=== PATIENT | female | born 1980 | race Caucasian/White ===

== ENCOUNTER 2017-03-07 16:15 | Emergency (ER) | payer OTHER ==
[2017-03-07 16:40] VITALS: BMI 21.3
[2017-03-07] MEDS ORDERED: Albuterol 0.083% Inhal Sol (2.5 mg/3 mL) UD IH STA (17:03)
--- NOTE | 2017-03-07 17:17 | ED PDOC ---
Arrival/HPI - General Chief Complaint: Cough, Cold, Congestion Time Seen by Provider: 03/07/17 16:52 Historian: Patient - History of Present Illness Narrative History of Present Illness (Text): 03/07/17 17:15 36-year-old female presents today with a cough 1 month. Patient states it started out as a dry cough And then the past week has become productive with greenish yellow sputum. Patient complaining of subjective fevers at home. Patient states at times she feels that she is having some difficulty with deep inspiration. Patient complaining of joint aches. Patient states for "a while now " she has had back pain and now has been experiencing pain in the ankles and knees elbows and wrists. Patient states recently she developed pain in the shoulders bilaterally. She denies any recent travel. States she was born in the [place]. Denies camping. Denies exposure to wooded areas. Denies abdominal pain. No nausea or vomiting. No dizziness or weakness. Patient states she is a smoker. No other complaints. Time/Duration: > month Symptom Onset: Gradual Symptom Course: Worsening Quality: Aching Severity Level: 5 Past Medical History - Provider Review Nursing Documentation Reviewed: Yes - Travel History Have you recently traveled outside [place] w/in the past 3 mons?: No - Infectious Disease Hx of Infectious Diseases: None - Tetanus Immunization Tetanus Immunization: Unknown - Cardiac Hx Cardiac Disorders: No - Pulmonary Hx Respiratory Disorders: No - Neurological Hx Neurological Disorder: No - HEENT Hx HEENT Disorder: No - Renal Hx Renal Disorder: No - Endocrine/Metabolic Hx Endocrine Disorders: No - Hematological/Oncological Hx Blood Disorders: No - Integumentary Hx Dermatological Disorder: No - Musculoskeletal/Rheumatological Hx Musculoskeletal Disorders: No - Gastrointestinal Hx Gastrointestinal Disorders: No - Genitourinary/Gynecological Hx Genitourinary Disorders: No - Psychiatric Hx Psychophysiologic Disorder: No Hx Substance Use: No - Surgical History Other/Comment: Myonectomy fibroids. - Anesthesia Hx Anesthesia: No Hx Anesthesia Reactions: No Hx Malignant Hyperthermia: No - Suicidal Assessment Feels Threatened In Home Enviroment: No Family/Social History - Physician Review Nursing Documentation Reviewed: Yes Family/Social History: Unknown Family HX Smoking Status: Current Some Days Smoker Hx Alcohol Use: Yes Hx Substance Use: No Hx Substance Use Treatment: No Allergies/Home Meds Allergies/Adverse Reactions: Allergies No Known Allergies Allergy (Verified 08/24/16 22:45) Review of Systems - Review of Systems Constitutional: Fevers. absent: Fatigue ENT: Sinus Congestion. absent: Sore Throat Respiratory: SOB, Cough, Wheezing Cardiovascular: absent: Chest Pain, Palpitations Gastrointestinal: absent: Abdominal Pain, Nausea, Vomiting Genitourinary Female: absent: Dysuria, Frequency, Hematuria Musculoskeletal: Arthralgias, Back Pain. absent: Neck Pain Skin: absent: Rash, Pruritis Neurological: absent: Headache, Dizziness Psychiatric: absent: Anxiety, Depression Physical Exam Vital Signs Reviewed: Yes Vital Signs Temp Pulse Resp BP Pulse Ox 03/07/17 16:34 98.6 F 73 16 100/62 100 Temperature: Afebrile Blood Pressure: Normal Pulse: Regular Respiratory Rate: Normal Appearance: Positive for: Well-Appearing, Non-Toxic, Comfortable Pain Distress: None Mental Status: Positive for: Alert and Oriented X 3 - Systems Exam Head: Present: Atraumatic Conjunctiva: Present: Normal Mouth: Present: Moist Mucous Membranes Pharnyx: Present: Normal. No: ERYTHEMA, EXUDATE, TONSILS ENLARGED, Peritonsilar Swelling, Uvular Deviation, Muffled/Hoarse Voice Nose (External): Present: Atraumatic Nose (Internal): Present: Normal Inspection. No: Septal Hematoma Neck: Present: Normal Range of Motion, Trachea Midline. No: Meningeal Signs, Lymphadenopathy Respiratory/Chest: Present: Good Air Exchange, Wheezes, Rhonchi. No: Clear to Auscultation, Respiratory Distress, Accessory Muscle Use, Retracting, Tachypneic Cardiovascular: Present: Regular Rate and Rhythm. No: Tachycardic Abdomen: No: Tenderness Back: Present: Normal Inspection. No: Midline Tenderness, Paraspinal Tenderness Upper Extremity: Present: Normal ROM. No: Swelling Lower Extremity: Present: Normal ROM Neurological: Present: GCS=15, Speech Normal, Gait Normal Skin: Present: Warm, Dry, Normal Color. No: Rashes Psychiatric: Present: Alert, Oriented x 3 Medical Decision Making ED Course and Treatment: 03/07/17 17:19 36yr old smoker with 2 month history of cough. now productive. secondary complaint of joint aches. pt with expiratory wheezing noted bilaterally with rhonchi. will given albuterol nebulizer. cxr; no infiltrate will send lyme disease test for arthralgias; pt reassessment; pt non toxic well appearing. no distress. stable vitals. lungs cta bilaterally; pt started on zithromax for cough. advised f/u with PMD; advised f/u with interlocking and signal mechanic; advised immediate return if symptoms worsen,persist or if new symptoms develop. impression; cough, arthralgias motrin every 6 hours as needed for pain/fever reduction zithromax; daily x 4 days increase fluids albuterol 2 puffs every 4-6 hours as needed for cough follow up with the primary care physician within the next 2 days. follow up with the interlocking and signal mechanic within the next 2 days return if symptoms worsen,persist or if new concerning symptoms develop. - RAD Interpretation Radiology Orders: 03/07/17 17:03 CHEST TWO VIEWS (PA/LAT) [RAD] Stat - Medication Orders Current Medication Orders: Discontinued Medications Albuterol Sulfate (Albuterol 0.083% Inhal Sena (2.5 Mg/3 Ml) Ud) 2.5 mg IH STAT STA Stop: 03/07/17 17:04 Last Admin: 03/07/17 17:21 Dose: 2.5 mg Disposition/Present on Arrival - Present on Arrival Any Indicators Present on Arrival: No History of DVT/PE: No History of Uncontrolled Diabetes: No Urinary Catheter: No History of Decub. Ulcer: No History Surgical Site Infection Following: None - Disposition Have Diagnosis and Disposition been Completed?: Yes Diagnosis: Cough, Arthralgia Disposition: HOME/ ROUTINE Disposition Time: 18:07 Patient Plan: Discharge Patient Problems: Current Active Problems Problem Status Onset Arthralgia Acute Cough Acute Condition: GOOD Discharge Instructions (ExitCare): Acute Cough (ED), Arthralgia (ED) Additional Instructions: motrin every 6 hours as needed for pain/fever reduction zithromax; daily x 4 days increase fluids albuterol 2 puffs every 4-6 hours as needed for cough follow up with the primary care physician within the next 2 days. follow up with the interlocking and signal mechanic within the next 2 days return if symptoms worsen,persist or if new concerning symptoms develop. Prescriptions: Albuterol HFA [Ventolin HFA 90 mcg/actuation (8 g)] 2 puff IH [id number] PRN #1 inhaler PRN Reason: Cough Azithromycin [Zithromax] 250 mg PO DAILY #4 tab Ibuprofen [Motrin] 600 mg PO Q6H PRN #20 tab PRN Reason: pain/fever reduction Referrals: Christiano Delgadillo MD [Primary Care Provider] - Follow up with primary Ebenezer Keys DO [Staff Provider] - Follow up with primary Chase Lea MD [Staff Provider] - Follow up with primary [facility] [place] [Outside] - Follow up with primary Forms: [employer] ([place])
[2017-03-07 18:43] VITALS: BP 97/56; PULSE 88; RESP 18; TEMP 98.1; O2SAT 99
[2017-03-08 08:04] LABS: LYME DISEASE SCREEN <0.90 index
--- NOTE | 2017-03-08 08:54 | RAD ---
HISTORY: cough COMPARISON: No prior. TECHNIQUE: Chest PA and lateral FINDINGS: LUNGS: No active pulmonary disease. PLEURA: No significant pleural effusion identified. No pneumothorax apparent. CARDIOVASCULAR: Normal. OSSEOUS STRUCTURES: No significant abnormalities. VISUALIZED UPPER ABDOMEN: Normal. OTHER FINDINGS: Mild pectus deformity common normal variant IMPRESSION: No active disease. Concordant results with the preliminary interpretation rendered by the emergency department physician procedure.
[2017-03-11 15:29] LABS: 18 KD (IGG) BAND Nonreactive; 23 KD (IGG) BAND Nonreactive; 23 KD (IGM) BAND Nonreactive; 28 KD (IGG) BAND Nonreactive; 30 KD (IGG) BAND Nonreactive; 39 KD (IGG) BAND Nonreactive; 39 KD (IGM) BAND Nonreactive; 41 KD (IGG) BAND Nonreactive; 41 KD (IGM) BAND Nonreactive; 45 KD (IGG) BAND Nonreactive; 58 KD (IGG) BAND Nonreactive; 66 KD (IGG) BAND Nonreactive; 93 KD (IGG) BAND Nonreactive; LYME DISEASE INTERP (IGG) Negative (Negative)
== END 2017-03-07 18:42 | disposition home or self-care (01) ==
LOC: ED 16:15
DX: R05 Cough (principal); M25.50 Pain in unspecified joint

== ENCOUNTER 2017-03-22 19:15 | Emergency (ER) | payer OTHER ==
[2017-03-22 19:15] VITALS: BMI 22.2
[2017-03-22 19:25] VITALS: RESP 18; TEMP 98.6
[2017-03-22] MEDS ORDERED: Albuterol HFA 90 mcg/actuation (8 g) IH STA (20:05)
--- NOTE | 2017-03-22 20:11 | ED PDOC ---
Arrival/HPI - General Chief Complaint: Cough, Cold, Congestion Time Seen by Provider: 03/22/17 19:20 Historian: Patient - History of Present Illness Narrative History of Present Illness (Text): you were treated in the ED today for being seen 03/07/17 for cough and given azithromycin and today having persistent productive cough with lung discomfort with the cough and discomfort breathing with the cough otherwise without any nausea/vomiting/headache/dizziness/abdomen pain/numbness/tingling/loss of limb function/pain with urination/recent travel/prior blood clots/prior cancer history/prior hormonal use. 03/22/17 20:08 03/22/17 20:40 Time/Duration: 24 hours Symptom Onset: Gradual Symptom Course: Unchanged Quality: Aching, Pressure Severity Level: 2 Past Medical History - Provider Review Nursing Documentation Reviewed: Yes - Travel History Have you recently traveled outside [place] w/in the past 3 mons?: Yes - Infectious Disease Hx of Infectious Diseases: None - Tetanus Immunization Tetanus Immunization: Unknown - Cardiac Hx Cardiac Disorders: No - Pulmonary Hx Respiratory Disorders: No - Neurological Hx Neurological Disorder: No - HEENT Hx HEENT Disorder: No - Renal Hx Renal Disorder: No - Endocrine/Metabolic Hx Endocrine Disorders: No - Hematological/Oncological Hx Blood Disorders: No - Integumentary Hx Dermatological Disorder: No - Musculoskeletal/Rheumatological Hx Musculoskeletal Disorders: No - Gastrointestinal Hx Gastrointestinal Disorders: No - Genitourinary/Gynecological Hx Genitourinary Disorders: No - Psychiatric Hx Psychophysiologic Disorder: No Hx Substance Use: No - Surgical History Other/Comment: Myonectomy fibroids. - Anesthesia Hx Anesthesia: No Hx Anesthesia Reactions: No Hx Malignant Hyperthermia: No - Suicidal Assessment Feels Threatened In Home Enviroment: No Family/Social History - Physician Review Nursing Documentation Reviewed: Yes Family/Social History: No Known Family HX Smoking Status: Current Some Days Smoker Hx Alcohol Use: Yes Hx Substance Use: No Hx Substance Use Treatment: No Allergies/Home Meds Allergies/Adverse Reactions: Allergies No Known Allergies Allergy (Verified 11/23/15 22:45) Review of Systems - Review of Systems Constitutional: Normal Eyes: Normal ENT: Normal Respiratory: Cough Cardiovascular: Other (chest discomfort with cough) Genitourinary Female: Normal Musculoskeletal: Normal Skin: Normal Neurological: Normal Endocrine: Normal Hemo/Lymphatic: Normal Psychiatric: Normal Physical Exam Vital Signs Reviewed: Yes Vital Signs Temp Pulse Resp BP Pulse Ox 03/22/17 19:18 98.6 F 64 18 102/64 98 Temperature: Afebrile Blood Pressure: Normal Pulse: Regular Respiratory Rate: Normal Appearance: Positive for: Well-Appearing, Non-Toxic, Comfortable Pain Distress: None Mental Status: Positive for: Alert and Oriented X 3 - Systems Exam Head: Present: Atraumatic, Normocephalic Pupils: Present: PERRL Extroacular Muscles: Present: EOMI Conjunctiva: Present: Normal Ears: Present: Normal Mouth: Present: Moist Mucous Membranes Pharnyx: Present: Normal Nose (External): Present: Atraumatic Nose (Internal): Present: Normal Inspection Neck: Present: Normal Range of Motion Respiratory/Chest: Present: Clear to Auscultation, Good Air Exchange Cardiovascular: Present: Regular Rate and Rhythm Abdomen: No: Tenderness, Distention, Normal Bowel Sounds, Peritoneal Signs, Rebound, Guarding, McBurney's Point Tender, Rovsing's Sign Present, Hernias, Feeding Tubes, Ostomy Tubes, Mass/Organomegaly, Scars, Other Back: Present: Normal Inspection Upper Extremity: Present: Normal Inspection Lower Extremity: Present: Normal Inspection Neurological: Present: GCS=15, CN II-XII Intact, Speech Normal, Motor Func Grossly Intact Skin: Present: Warm, Normal Color Psychiatric: Present: Alert, Oriented x 3, Normal Insight, Normal Concentration. No: Normal Affect, Normal Mood, Anxious, Agitated, Depressed Mood, Suicidal Ideation, Homicidal Ideation, Delusional, Hallucinations, Intoxicated, Lethargic, Other Medical Decision Making ED Course and Treatment: 03/22/17 20:13 you were treated in the ED today for being seen 03/07/17 for cough and given azithromycin and today having persistent productive cough with lung discomfort with the cough and discomfort breathing with the cough otherwise without any nausea/vomiting/headache/dizziness/abdomen pain/numbness/tingling/loss of limb function/pain with urination/recent travel/prior blood clots/prior cancer history/prior hormonal use/thoughts to harm yourself or others or hallucinations. You were otherwise breathing easily, smiling, good strength/ sensation, walking easily, clear lungs, no abdomen tenderness, no fever temp 98.4, stable heart rate 64, stable breathing rate 18, excellent oxygen level 98% room air, stable blood pressure 102/64, urine test negative, radiology chest xray initial no acute findings, albuterol, prednisone, motrin, done in the ED with improvement, counselled to stop smoking and had a long discussion and you stated having pressure related to coughing without improvement and thus stated recommend labratory and ECG evaluation for completeness but you refused at this time and cautioned for complications/ but you wanted to go home at this time. 1. Recommend prednisone as directed for coughing relief. recommend albuterol 1-2 puffs every 2-4 hours as directed for reactive coughing relief. 2. Recommend if persistent cough with sputum after 3- 5 days then can start augmentin as directed for bronchitis infection control treatment. 3. Recommend follow-up primary care 1-2 days to review symptoms, referral to cardiology and pulmonary clinic. 4. If any worsening pain, fever, chills, nausea, vomiting, difficulty breathing, numbness, loss of limb function , pain with urination or any medical condition then return to the ED. 03/22/17 20:40 PERC negative 03/22/17 21:20 03/22/17 21:41 - RAD Interpretation Narrative RAD Interpretations (Text): 03/22/17 21:21 CXR no acute. Radiology Orders: 03/22/17 20:06 CHEST TWO VIEWS (PA/LAT) [RAD] Stat Front End Developer Designer: ED Physician - Medication Orders Current Medication Orders: Discontinued Medications Albuterol (Ventolin Hfa 90 Mcg/Actuation (8 G)) 2 puff IH STAT STA Stop: 03/22/17 20:06 Last Admin: 03/22/17 20:41 Dose: 2 puff Ibuprofen (Motrin Tab) 800 mg PO STAT STA Stop: 03/22/17 20:06 Last Admin: 03/22/17 20:15 Dose: 800 mg MAR Pain/Vitals Document 03/22/17 20:15 GMD (Rec: 03/22/17 20:15 GMD [id number]) Pain Reassessment Is This A Pain ReAssessment? No Sleep Is patient sleeping during reassessment? No Presence of Pain Presence of Pain Yes Location Pain Location Body Site Lumbar Prednisone (Prednisone Tab) 60 mg PO STAT ONE Stop: 03/22/17 20:06 Last Admin: 03/22/17 20:15 Dose: 60 mg Disposition/Present on Arrival - Present on Arrival Any Indicators Present on Arrival: No History of DVT/PE: No History of Uncontrolled Diabetes: No Urinary Catheter: No History of Decub. Ulcer: No History Surgical Site Infection Following: None - Disposition Have Diagnosis and Disposition been Completed?: Yes Diagnosis: Bronchitis Disposition: HOME/ ROUTINE Disposition Time: 21:44 Patient Plan: Discharge Patient Problems: Current Active Problems Problem Status Onset Bronchitis Acute Condition: STABLE Additional Instructions: you were treated in the ED today for being seen 03/07/17 for cough and given azithromycin and today having persistent productive cough with lung discomfort with the cough and discomfort breathing with the cough otherwise without any nausea/vomiting/headache/dizziness/abdomen pain/numbness/tingling/loss of limb function/pain with urination/recent travel/prior blood clots/prior cancer history/prior hormonal use/thoughts to harm yourself or others or hallucinations. You were otherwise breathing easily, smiling, good strength/ sensation, walking easily, clear lungs, no abdomen tenderness, no fever temp 98.4, stable heart rate 64, stable breathing rate 18, excellent oxygen level 98% room air, stable blood pressure 102/64, urine test negative, radiology chest xray initial no acute findings, albuterol, prednisone, motrin, done in the ED with improvement, counselled to stop smoking and had a long discussion and you stated having pressure related to coughing without improvement and thus stated recommend labratory and ECG evaluation for completeness but you refused at this time and cautioned for complications/ but you wanted to go home at this time. 1. Recommend prednisone as directed for coughing relief. recommend albuterol 1-2 puffs every 2-4 hours as directed for reactive coughing relief. 2. Recommend if persistent cough with sputum after 3- 5 days then can start augmentin as directed for bronchitis infection control treatment. 3. Recommend follow-up primary care 1-2 days to review symptoms, referral to cardiology and pulmonary clinic. 4. If any worsening pain, fever, chills, nausea, vomiting, difficulty breathing, numbness, loss of limb function , pain with urination or any medical condition then return to the ED. Prescriptions: Amoxicillin/Clavulanate [Augmentin 875 MG-125 MG] 1 tab PO Q12 7 Days #14 tab Prednisone [Deltasone] 20 mg PO DAILY 5 Days #5 tablet Forms: [employer] (Turk[place])
[2017-03-22 22:16] VITALS: BP 124/78; PULSE 78; O2SAT 99
--- NOTE | 2017-03-23 13:12 | RAD ---
HISTORY: 36yoF, with productive cough COMPARISON: 03/07/2017 TECHNIQUE: Chest PA and lateral FINDINGS: LUNGS: No active pulmonary disease. PLEURA: No significant pleural effusion identified. No pneumothorax apparent. CARDIOVASCULAR: Normal. OSSEOUS STRUCTURES: No significant abnormalities. VISUALIZED UPPER ABDOMEN: Normal. OTHER FINDINGS: None. IMPRESSION: No active disease. No significant interval change compared to the prior examination(s).
== END 2017-03-22 22:17 | disposition home or self-care (01) ==
LOC: ED 19:15
DX: J40 Bronchitis, not specified as acute or chronic (principal)